=== PATIENT | male | born 1965 | race Caucasian/White ===

== ENCOUNTER → 2020-06-20 | Outpatient (CLI) | payer OTHER | END | disposition home or self-care (01) | LOC: LABWHC1 12:47 | PROVIDERS: ATTEND Orthopaedic Surgery | DX: Z01.812 Encounter for preprocedural laboratory examination (principal) | CPT/HCPCS: 87070 ==

== ENCOUNTER → 2020-07-11 | Outpatient (CLI) | payer OTHER ==
--- NOTE | 2020-07-13 23:21 | MR ---
EXAMINATION TYPE: MR giftyine/laron wo con DATE OF EXAM: 07/11/2020 COMPARISON: None HISTORY: Neck and lower back pain, headaches, RLE pain CONTRAST: Performed utilizing 0 mL intravenous Gadavist gadolinium contrast. TECHNIQUE: Multiplanar multiecho imaging on a 3.0 Cynthia magnet is performed through the cervical spin e. FINDINGS: The craniovertebral junction is normal. Vertebral body alignment is normal. C7-T1: No focal disc herniation or significant disc bulge is evident. No spinal canal stenosis or n eural foraminal stenosis is present. C6-7: No focal disc herniation or significant disc bulge is evident. No spinal canal stenosis or felix ral foraminal stenosis is present. C5-6: There is a broad-based disc bulge present with anterior thecal sac flattening. This may have so me cord contact. Cord deformity is not identified. Spinal canal narrowing is present. There is uncove rtebral joint hypertrophy. Moderate bilateral foraminal narrowing. C4-5: There is mild left paracentral disc bulge with mild anterior thecal sac flattening. No cord con tact or spinal canal stenosis present. Neural foramen are patent.. C3-4: There is central disc bulging. Mild anterior thecal sac compression is evident. No spinal canal stenosis or neural foraminal stenosis is present. C2-3: No focal disc herniation or significant disc bulge is evident. No spinal canal stenosis or felix ral foraminal stenosis is present. IMPRESSIONS: 1. Mild central disc bulging C3-4 with anterior thecal sac compression. 2. Mild left paracentral disc bulging with mild anterior thecal sac compression C4-5. 3. C5-6 Broad-based disc bulging with moderate anterior thecal sac compression may have cord contact and some spur mild spinal canal narrowing. 4. Mild bilateral foraminal narrowing from uncovertebral joint is present at the C5-6 level EXAMINATION TYPE: MR matilde/laron wo con DATE OF EXAM: 07/11/2020 COMPARISON: None HISTORY: Neck and lower back pain, headaches, RLE pain CONTRAST: 0 mL intravenous Gadavist. TECHNIQUE: Multiplanar, multisequence images of the lumbar spine were acquired. FINDINGS: L5-S1: No spinal canal stenosis or neural foraminal stenosis present. Facet hypertrophy is present. N o focal disc herniation or significant disc bulge is evident L4-L5: No significant disc bulge or disc herniation. No spinal canal stenosis. No foraminal stenosi s. Mild facet hypertrophy is present greater on the right. L3-L4: No significant disc bulge or disc herniation. No spinal canal stenosis. No foraminal stenosi s. Mild left facet hypertrophy is present.. L2-L3: No significant disc bulge or disc herniation. No spinal canal stenosis. No foraminal stenosi s. . L1-L2: No significant disc bulge or disc herniation. No spinal canal stenosis. No foraminal stenosi s. . T12-L1: No significant disc bulge or disc herniation. No spinal canal stenosis. No foraminal stenos is. . IMPRESSION: 1. Facet hypertrophy without foraminal stenosis or spinal canal stenosis. 2. No significant disc bulges.
== END | disposition home or self-care (01) ==
LOC: RADMRIMAIN 14:34
PROVIDERS: ATTEND Orthopaedic Surgery
DX: M99.71 Connective tissue and disc stenosis of intervertebral foramina of cervical region (principal); M48.02 Spinal stenosis, cervical region; M50.21 Other cervical disc displacement, high cervical region
CPT/HCPCS: 72141; 72148

== ENCOUNTER 2020-07-29 07:45 | Inpatient (IN) | payer OTHER ==
[2020-08-15 09:12] VITALS: BMI 32.3
--- NOTE | 2020-08-18 10:04 | HP ---
HISTORY AND PHYSICAL CHIEF COMPLAINT: Left shoulder pain. HISTORY OF PRESENT ILLNESS: The patient is a 54-year-old, right-hand dominant, unemployed male who presents with progressive left shoulder pain for the past several years, worsening over the past 8 months. He notes grinding and soreness along with stiffness. He is having night symptoms. He has previously had injections and therapy without much relief. Now he takes Toney as needed. He had a previous open surgery 30 years ago for recurrent dislocations. PAST MEDICAL HISTORY: Significant for arthritis, anxiety, hypercholesterolemia, hypertension, and chronic low back pain. PAST SURGICAL HISTORY: Significant for previous left open shoulder surgery. CURRENT MEDICATIONS: Current medications include Toney. ALLERGIES: He denies drug allergies. FAMILY HISTORY: Significant for cancer. SOCIAL HISTORY: Significant for 1 pack per day tobacco use. REVIEW OF SYSTEMS: Sixteen-point review of systems otherwise reviewed and is noncontributory. PHYSICAL EXAMINATION: On examination, the patient is approximately 5 feet 10 inches, 215 pounds of endomorphic habitus. HEENT exam is nonfocal. Neck is supple. On examination of his left shoulder, he has a healed deltopectoral incision. He is tender about the anterior glenohumeral joint and subacromial space. He has moderate crepitus. Active range of motion forward elevation 60 degrees, external rotation with the arm at side 20 degrees, internal rotation to the buttock. Passively I am able to forward elevate him to 70 degrees. Impingement test, Neer test, and Speed test are positive. His distal neurovascular exam appears intact in the left upper extremity. X-rays of the left shoulder obtained in the office show severe glenohumeral joint space narrowing in addition to previous anterior glenoid screw. The humeral head to acromial distance appears to be maintained. IMPRESSION: 1. Left severe glenohumeral joint osteoarthrosis. 2. History of open left shoulder stabilization surgery. RECOMMENDATIONS: I talked to the patient at length regarding his condition and treatment options. At this point he is quite limited and symptomatic secondary to pain related to his osteoarthrosis despite previous treatment with injections, medications, and therapy. After thorough discussion, he opts to proceed with surgery. We will plan to proceed with left total shoulder arthroplasty in addition to hardware removal. Risks and benefits were discussed at length in layman's terms. MMODL / IJN: [id number] /
[2020-08-18] MEDS ORDERED: ONDANSETRON 4 MG/2 ML VIAL IVP ONE (19:06)
[2020-08-18] MEDS ORDERED: DEXAMETHASONE SOD PHOSPHATE 4 MG/ML 1 ML VIAL IV ONE (19:06)
[2020-08-19] MEDS ORDERED: MELOXICAM 7.5 MG TAB PO PRN (05:00)
[2020-08-19] MEDS ORDERED: ACETAMINOPHEN TAB 500 MG TAB PO PRN (05:00)
[2020-08-19] MEDS ORDERED: TRANEXAMIC ACID 1,000 MG in SODIUM CHLORIDE 0.9% 100 ML IVPB PRN ×4 (05:00)
[2020-08-19] MEDS ORDERED: HYDROmorphone 0.5 MG/0.5 ML SYRINGE IVP PRN (07:00)
[2020-08-19] MEDS: LACTATED RINGERS 1,000 ML IV SCH ×2 (07:21→20:00)
[2020-08-19] MEDS ORDERED: TRANEXAMIC ACID 1,000 MG/10 ML VIAL ONE (07:42)
[2020-08-19] MEDS ORDERED: ROCURONIUM 10 MG/ML (5 ML VIAL) IV ONE (07:42)
[2020-08-19] MEDS ORDERED: ROPIVACAINE 5 MG/ML 30 ML VIAL ONE (07:42)
[2020-08-19] MEDS ORDERED: NEOSTIGMINE 1 MG/ML 10 ML VIAL ONE (07:42)
[2020-08-19] MEDS ORDERED: fentaNYL (PF) 50 MCG/ML 2 ML AMP ONE (07:42)
[2020-08-19] MEDS ORDERED: SODIUM CHLORIDE 0.9% 100 ML BAG ONE (07:42)
[2020-08-19] MEDS ORDERED: KETAMINE 10 MG/ML 20 ML VIAL ONE (07:42)
[2020-08-19] MEDS ORDERED: LIDOCAINE 1% INJ 10MG/ML (20 ML MDV) ONE (07:42)
[2020-08-19] MEDS ORDERED: WATER FOR INJECTION, STERILE 10 ML VIAL IV ONE (07:42)
[2020-08-19] MEDS ORDERED: HYDROmorphone (PF) 1 MG/ML ONE (07:42)
[2020-08-19] MEDS ORDERED: GLYCOPYRROLATE 0.2 MG/ML 2 ML VIAL ONE (07:42)
[2020-08-19] MEDS ORDERED: PROPOFOL 10 MG/ML 20 ML VIAL IV ONE (07:42)
[2020-08-19] MEDS ORDERED: ePHEDrine SULFATE/0.9% NACL/PF 50 MG/5 ML SYRINGE IV ONE (07:42)
[2020-08-19] MEDS ORDERED: MIDAZOLAM 2 MG/2 ML VIAL ONE (07:42)
[2020-08-19] MEDS ORDERED: SUCCINYLCHOLINE CHLORIDE 100 MG/5 ML SYR IV ONE (07:42)
[2020-08-19] MEDS ORDERED: ceFAZolin 3,000 MG in SODIUM CHLORIDE 0.9% IRRIGATIO 3,000 ML IRRIGATION ONE (08:27)
[2020-08-19] MEDS ORDERED: LACTATED RINGERS 1,000 ML IV ONE (09:44)
[2020-08-19] MEDS ORDERED: ONDANSETRON 4 MG/2 ML VIAL IVP PRN (09:52)
[2020-08-19] MEDS ORDERED: SENNOSIDES-DOCUSATE SODIUM 1 EACH TAB PO PRN (09:52)
[2020-08-19] MEDS ORDERED: HYDROcodone/APAP 7.5-325MG 1 EACH TAB PO PRN (09:54)
--- NOTE | 2020-08-19 10:23 | P.OP ---
Date of Procedure: 08/19/20 Preoperative Diagnosis: Severe left glenohumeral joint osteoarthrosis Postoperative Diagnosis: Same in addition to irritating hardware Procedure(s) Performed: Left total shoulder arthroplasty/removal retained hardware left glenoid Implants: Depuy global is 12 press-fit humeral stem was size 12 body, 52 x 21 mm eccentric humeral head, 48 mm cemented central peg glenoid component. Anesthesia: SERGIOA Surgeon: Per Guido Highway Maintainer #1: Veto Almanza Estimated Blood Loss (ml): 150 Pathology: other (I'll head) Condition: stable Disposition: PACU Indications for Procedure: Patient is a 55-year-old male who presents with progressive left shoulder pain secondary to osteoarthrosis despite conservative measures. He had an anterior glenoid procedure for stability more than 20 years ago. He discussion of the risks and benefits of operative intervention versus continued conservative measures was made with patient. He opted to proceed with surgery. Operative risks to include infection, neurovascular injury, development of blood clots, possible fracture, possible component loosening/instability need for subsequent procedures was discussed. He also understood at his younger age he is at higher risk for complication need for subsequent procedures. Informed consent was obtained. Operative Findings: As below Description of Procedure: The patient was brought to the operating room, and after induction of general anesthesia was placed in the beachchair position. The bony prominences were appropriately padded. The right upper extremity was prepped and draped in normal fashion. A deltopectoral incision was then made lateral to the coracoid process extending approximately 12 cm over the previous scar. The skin was incised sharply. Subcutaneous tissues were divided bluntly. Electrocautery was used for hemostasis. The deltopectoral interval was identified and the cephalic vein gently retracted laterally with the deltoid. Subdeltoid adhesions were bluntly dissected. A self-retaining retractor was placed. The clavipectoral fascia was opened and the conjoined tendon gently retracted medially. The upper one third of the pectoralis major was released to help facilitate exposure. The biceps was identified and the sheath was opened. The rotator interval was opened. The biceps was tenotomized and allowed to retract distally. The lesser tuberosity osteotomy was performed with a small sagittal saw. This completed with an osteotome. The humeral head was then exposed releasing the capsule off the humeral neck. The shoulder was gently dislocated. A starting hole was made in the head in line with the humeral shaft. The shaft was reamed by hand up to 12 mm. There is good distal chatter. The cutting guide was placed planning on a cut flush with the rotator cuff insertion and 30 of retroversion. The cutting block was pinned in place. The humeral head cut was then made. This measured most appropriately at 12 mm. Residual inferior osteophytes were carefully removed flush with the cahto cortical bone. A posterior glenoid retractor was placed. The glenoid was then exposed releasing the labrum from the 6-12 o'clock position. Residual labral tissue was removed. The anterior superior screw/washer was then removed. The glenoid sized most appropriate 48 mm. A guidewire was then inserted planning on the appropriate version. The glenoid was reamed down to a bleeding bony surface. The central pedicle was drilled. The alignment guide was placed in the peripheral peg holes drilled. The trial size 48 mm glenoid was placed and was fully seated. There was good anterior to posterior and inferior to superior fit. The trial component was removed. Pulsatile lavage was utilized. The bony surface was dried. The perip heral peg holes were then pressurized with cement utilizing a syringe. Excess cement was removed. A central peg glenoid was then placed and was fully seated. This was gently impacted. This was held in place until the cement had sufficiently hardened. Attention was then paid again towards preparing the proximal humerus. The appropriate broach was placed in 30 of retroversion and was fully seated. An eccentric 52 x 21 mm humeral head was placed. The shoulder was gently reduced. It was taken through a range of motion. It was felt to be stable in flexion and extension with internal and external rotation. I felt there was adequate scientologist of soft tissue tension. The shoulder was gently dislocated. The trial components were then removed. A #2 Ethibond was placed laterally for reattachment of the lesser tuberosity. The humeral stem was inserted in 30 of retroversion and was fully seated. There was good rotational stability. The eccentric 52 x 21 mm humeral head was gently impacted. The shoulder was then gently reduced and taken through range of motion and was felt to be stable. Pulsatile lavage was utilized. Lesser tuberosity was reattached utilizing #2 Ethibond suture. The rotator interval was closed with #2 Ethibond suture. She had minimal drainage at this point therefore a deep drain was not placed. The deltopectoral interval was closed with interrupted 2-0 Vicryl sutures. The subcu tissues were reapproximated with interrupted 2-0 Vicryl sutures. The skin was reprepped with 3-0 subcuticular Prolene suture. Steri-Strips were applied. A sterile dressing was applied in addition to a sling. The patient was then awoken from general anesthesia and transferred to recovery room in good condition. Blood loss was estimated at 150 mL. No complications were incurred. Sponge and needle counts were correct at the end the case. Piyush ISAACS during the major components the case to include exposure, resection, implantation, and closure.
--- NOTE | 2020-08-19 12:41 | XR ---
EXAMINATION TYPE: XR shoulder limited LT DATE OF EXAM: 08/19/2020 CLINICAL HISTORY: Left total shoulder replacement TECHNIQUE: Three views of the left shoulder are obtained. COMPARISON: None. FINDINGS: Single view left shoulder radiograph. There Has been a total left shoulder arthroplasty. No evidence of fracture or loosening of the left humeral prosthesis. Single radiopaque clip overlying t he glenoid. IMPRESSION: 1. Total left shoulder arthroplasty without evidence of fracture or loosening on this single view.
--- NOTE | 2020-08-19 13:22 | P.ANPRN ---
Procedure Note - Anesthesia - Nerve Block Performed Left Interscalene Time Out Performed: Yes (:) Date of Procedure: 08/19/20 Procedure Start Time: Procedure Stop Time: : Location of Patient: Phase I Indication: Acute Post-Operative Pain, Requested by Surgeon (Dr Guido) Sedation Type: Sedate with meaningful contact maintained Preparation: Sterile Prep Position: Supine Catheter: None Needle Types: Pajunk Needle Gauge: Other (see comment) (22g) Ultrasound used to visualize needle placement: Yes Ultrasound used to observe medication spread: Yes Injectate: 0.5% Ropivacaine (see comment for volume) (20cc) Blood Aspirated: No Pain Paresthesia on Injection Noted: No Resistance on Injection: Normal Image Stored and Saved: Yes Events: Uneventful and Well Tolerated
[2020-08-19] MEDS ORDERED: CYCLOBENZAPRINE 10 MG TAB PO PRN (15:14)
[2020-08-19] MEDS ORDERED: ALPRAZolam 0.5 MG TAB PO PRN (15:14)
[2020-08-19] MEDS: NICOTINE 21MG/24HR PATCH TRANSDERM SCH (15:30)
--- NOTE | 2020-08-19 17:05 | P.CONS ---
History of Present Illness - Reason for Consult Hypertension - History of Present Illness Patient is a pleasant 55-year-old male admitted for elective left shoulder arthroplasty for severe left glenohumeral joint osteoarthritis. Patient had left total shoulder arthroplasty. Patient pain is well controlled at this time did not pass gas yet that did not move his bowels yet. Patient does have history of hypertension. Patient blood pressure is fairly stable at this time patient is on multiple antihypertensive medications. Patient denied any fever chills patient doesn't have any dysuria patient fully catheter was removed. Review of Systems REVIEW OF SYSTEMS: CONSTITUTIONAL: No fever, no malaise, no fatigue. HEENT: No recent visual problems or hearing problems. Denied any sore throat. CARDIOVASCULAR: No chest pain, orthopnea, PND, no palpitations, no syncope. PULMONARY: No shortness of breath, no cough, no hemoptysis. GASTROINTESTINAL: No diarrhea, no nausea, no vomiting, no abdominal pain. NEUROLOGICAL: No headaches, no weakness, no numbness. HEMATOLOGICAL: Denies any bleeding or petechiae. GENITOURINARY: Denies any burning micturition, frequency, or urgency. MUSCULOSKELETAL/RHEUMATOLOGICAL: As mentioned in HPI ENDOCRINE: Denies any polyuria or polydipsia. The rest of the 14-point review of systems is negative. Past Medical History Past Medical History: Eye Disorder, Hyperlipidemia, Hypertension Additional Past Medical History / Comment(s): MACULAR DEGENERATION History of Any Multi-Drug Resistant Organisms: None Reported Past Surgical History: Orthopedic Surgery Additional Past Surgical History / Comment(s): LT SHOULDER SX. ORIF RT ANKLE Past Anesthesia/Blood Transfusion Reactions: No Reported Reaction Smoking Status: Current every day smoker - Past Family History Mother Family Medical History: Cancer Medications and Allergies Home Medications Medication Instructions Recorded Confirmed Type ALPRAZolam [Xanax] 0.5 mg PO TID PRN 08/15/20 08/15/20 History Atorvastatin [Lipitor] 20 mg PO HS 08/15/20 08/15/20 History Cyclobenzaprine [Flexeril] 10 mg PO TID PRN 08/15/20 08/15/20 History Escitalopram [Lexapro] 20 mg PO DAILY 08/15/20 08/15/20 History HYDROcodone/APAP 7.5-325MG [[place] 1 tab PO Q6HR PRN 08/15/20 08/15/20 History 7.5-325] Losartan Potassium 100 mg PO DAILY 08/15/20 08/15/20 History hydroCHLOROthiazide [Hydrodiuril] 25 mg PO BID 08/15/20 08/15/20 History Allergies Allergy/AdvReac Type Severity Reaction Status Date / Time No Known Allergies Allergy Verified 08/19/20 07:03 Physical Exam Vitals: Vital Signs Temp Pulse Pulse Resp BP BP Pulse Ox 08/19/20 13:35 97.9 F 83 20 130/81 93 L 08/19/20 13:00 88 14 122/70 99 08/19/20 12:30 78 16 114/68 97 08/19/20 12:00 88 14 113/73 93 L 08/19/20 11:45 94 16 131/71 95 08/19/20 11:30 88 16 137/71 96 08/19/20 11:15 75 14 137/75 96 08/19/20 11:00 79 14 163/79 96 08/19/20 10:45 90 14 166/76 90 L 08/19/20 10:30 100 14 99 08/19/20 10:17 97.1 F L 65 18 187/96 95 08/19/20 07:13 97.1 F L 52 L 18 144/73 97 Intake and Output 08/19/20 08/19/20 08/19/20 06:59 14:59 22:59 Intake Total 1151 Output Total 150 Balance 1001 Intake: IV 1151 Output: Estimated Blood Loss 150 Other: Weight 98 kg PHYSICAL EXAMINATION: GENERAL: The patient is alert and oriented x3, not in any acute distress. Well developed, well nourished. HEENT: Pupils are round and equally reacting to light. EOMI. No scleral icterus. No conjunctival pallor. Normocephalic, atraumatic. No pharyngeal erythema. No thyromegaly. CARDIOVASCULAR: S1 and S2 present. No murmurs, rubs, or gallops. PULMONARY: Chest is clear to auscultation, no wheezing or crackles. ABDOMEN: Soft, nontender, nondistended, normoactive bowel sounds. No palpable organomegaly. MUSCULOSKELETAL: Her to orthopedic surgery and postsurgical packing off left shoulder EXTREMITIES: No cyanosis, clubbing, or pedal edema. NEUROLOGICAL: Gross neurological examination did not reveal any focal deficits. SKIN: No rashes. Assessment and Plan Plan: -Hypertension: Patient is expected to have perioperative hypotension because of which I'll hold off on hydrochlorothiazide and cut down the losartan. -Hyperlipidemia continue with Lipitor -Depression: Patient is on Lexapro which will be continued -Chronic back pain -Nicotine abuse: Counseling was provided ordered a nicotine patch -Left shoulder osteoarthritis primarily: Patient is status post surgery and pain management as per primary service pain is well controlled at this time.
[2020-08-19 20:52] VITALS: RESP 16
[2020-08-19] MEDS ORDERED: ATORVASTATIN 20 MG TAB PO SCH (21:00)
[2020-08-19] MEDS: HYDROcodone/APAP 7.5-325MG 1 EACH TAB PO PRN (22:22)
[2020-08-20] MEDS: HYDROmorphone 0.5 MG/0.5 ML SYRINGE IVP PRN ×2 (03:59→09:01)
[2020-08-20] MEDS: HYDROcodone/APAP 7.5-325MG 1 EACH TAB PO PRN (05:04)
[2020-08-20 05:32] VITALS: BP 101/63; PULSE 59; TEMP 97.8
[2020-08-20 07:55] LABS: Basophils % (A) 0 %; Eosinophils # (A) 0.1 k/uL (0-0.7); Eosinophils % (A) 1 %; HCT 37.3 % (39.0-53.0); Lymphocytes # (A) 2.3 k/uL (1.0-4.8); Lymphocytes % (A) 17 %; MCHC 34.8 g/dL (31.0-37.0); Mean Platelet Volume 8.4; Monocytes # (A) 1.2 k/uL (0-1.0); Monocytes % (A) 9 %; Neutrophils # (A) 9.2 k/uL (1.3-7.7); Neutrophils % (A) 70 %; Platelet Count 188 k/uL (150-450); RBC 4.06 m/uL (4.30-5.90); RDW 12.4 % (11.5-15.5)
[2020-08-20] MEDS ORDERED: LOSARTAN 50 MG TAB PO SCH (09:00)
[2020-08-20] MEDS ORDERED: ASPIRIN 325 MG TAB PO SCH (09:00)
[2020-08-20] MEDS ORDERED: ESCITALOPRAM 20 MG TAB PO SCH (09:00)
[2020-08-20] MEDS: NICOTINE 21MG/24HR PATCH TRANSDERM SCH (09:03)
--- NOTE | 2020-08-20 10:04 | P.PN ---
Subjective Progress Note Date: 08/20/20 Principal diagnosis: Status post left total shoulder arthroplasty Patient was examined today bedside, he is resting comfortably. Patient is utilizing the arm sling. Postoperative bandages removed by myself today at bedside. He is having some pain in the shoulder with movement. He has no other orthopedic complaints. He denies any headaches, lightheadedness, chest pain or shortness of breath. Objective - Vital Signs Vital signs: Vital Signs Temp 97.8 F 08/20/20 05:00 Pulse 59 L 08/20/20 05:00 Resp 16 08/20/20 05:00 BP 101/63 08/20/20 05:00 Pulse Ox 94 L 08/20/20 05:00 Intake & Output 08/19/20 08/20/20 08/20/20 18:59 06:59 18:59 Intake Total 1281 1300 Output Total 150 600 Balance 1131 700 Weight 98 kg Intake: IV 1151 Intake, IV Titration 130 340 Amount Lactated Ringers 1,000 ml 80 240 @ 20 mls/hr IV .Q24H [facility] Rx#:[id number] ceFAZolin 2 gm In Sodium 50 100 Chloride 0.9% 50 ml @ 100 mls/hr IVPB Q8HR [facility] Rx# :[id number] Oral 960 Output: Urine 600 Estimated Blood Loss 150 Other: # Voids 2 - Exam Left upper extremity: Incision is clean, dry and intact. The suture and Steri-Strips are in good position. There is some ecchymosis noted along the medial and lateral borders of the upper arm trending down or near the elbow. Extension and flexion are intact at the elbow and hand and wrist. Shoulder range of motion was not assessed. Sensory exam to light touch is intact throughout that left upper extremity, his radial and ulnar pulses are 2+ - Labs CBC & Chem 7: 08/20/20 06:58 Labs: Abnormal Lab Results - Last 24 Hours (Table) 08/20/20 Range/Units 06:58 WBC 13.0 H (3.8-10.6) k/uL RBC 4.06 L (4.30-5.90) m/uL Hct 37.3 L (39.0-53.0) % Neutrophils # 9.2 H (1.3-7.7) k/uL Monocytes # 1.2 H (0-1.0) k/uL Assessment and Plan Assessment: Postop day #1 status post left total shoulder arthroplasty Plan: Pain control, patient does take Claunch for his chronic back pain. We'll prescribe Percocet 5 mg/325 mg the next 1-2 weeks DVT prophylaxis, aspirin 81 mg twice a day for 2 weeks Wound care instructions were discussed Activity level instructions were discussed, this including use of arm sling Showering instructions were discussed Medical recommendations Plan for discharge home today Time with Patient: Less than 30
--- NOTE | 2020-08-20 10:09 | P.DS ---
Providers Date of admission: 08/19/20 06:03 Expected date of discharge: 08/20/20 Attending physician: Per Guido Consults: 08/19/20 09:52 Consult Physician Routine Consulting Provider: Annita Crowe Consult Reason/Comments: medical management Do you want consulting provider notified?: Yes Primary care physician: [facility] Course: Date of admission: 08/19/2020 Date of discharge: 08/20/2020 Admission diagnosis: Status post left total shoulder arthroplasty Discharge diagnosis: Same Attending physician: Dr. Guido Surgical procedures: Left total shoulder arthroplasty Brief history: Patient is a 55-year-old male with a history of progressive primary left shoulder osteoarthritis. At this point patient has failed conservative treatment measures and has opted to proceed with a elective left total shoulder arthroplasty. Hospital course: Details of patient's surgery can be found in operative report. Patient tolerated the procedure well and was subsequently transported to orthopedic floor. Patient's orthopeidc and medical care was provided daily. Patient had daily laboratory tests performed for evaluation of overall blood counts. Patient had daily physical therapy to include strengthening range of motion as well as education with walker ambulation. Patient was treated with aspirin for their postoperative DVT prophylaxis during their inpatient stay. Patient was noted to have a relatively uneventful postoperative course. Patient reported satisfactory pain control with oral pain medications by postoperative day 0. Patient showed satisfactory progress with physical therapy. Patient moved steadily through the program and had no difficulty meeting the goals by postoperative day 1. Given patient's otherwise satisfactory course and having met physical therapy goals, plan is to discharge patient home on postoperative day 1. Discharge condition/disposition: Patient will be discharged home in stable condition. Discharge medications: Instructions are given on resumption of patient's normal daily medications per primary care recommendation, in addition patient will be prescribed Percocet 5 mg/325 mg. Discharge instructions: 1. Wound care and infection precautions, keep incision dry and covered while showering, no lotions, creams, moisturizers. No soaking, tubs, pools, hottubs. Do not scrub over the incision. 2. Utilize arm sling at all times 3. Ice shoulder often 4. Utilize compression sleeve until seen at first follow up appointment.. 7. Pain meds and anticoagulants per prescription. 8. Pain medication has potential to cause constipation. Increase oral fluid and fiber intake. Contact primary care provider if you have not had a bowel movement within 48 hours after discharge 9. No anti-inflammatory medication until discussed at first post operative visit, this including Motrin, Aleve, Mobic, Diclofenac 10. Follow up in office at 2 weeks postop with Brendon Negron/Dylan Cruz PA-C 11. Follow up with your primary care doctor 7-10 days after discharge. 12. Contact [facility] with any questions, . Procedures: Left total shoulder arthroplasty Patient Condition at Discharge: Good Plan - Discharge Summary Discharge Rx Participant: Yes New Discharge Prescriptions: New oxyCODONE HCL/ACETAMINOPHEN [Percocet 5-325 mg] 1 - 2 tab PO Q6HR PRN #42 tab PRN Reason: Pain Aspirin [Adult Low Dose Aspirin EC] 81 mg PO BID #60 tablet. No Action ALPRAZolam [Xanax] 0.5 mg PO TID PRN PRN Reason: Anxiety Cyclobenzaprine [Flexeril] 10 mg PO TID PRN PRN Reason: MUSCLE SPASMS Losartan Potassium 100 mg PO DAILY Escitalopram [Lexapro] 20 mg PO DAILY hydroCHLOROthiazide [Hydrodiuril] 25 mg PO BID HYDROcodone/APAP 7.5-325MG [[place] 7.5-325] 1 tab PO Q6HR PRN PRN Reason: Pain Atorvastatin [Lipitor] 20 mg PO HS Discharge Medication List ALPRAZolam [Xanax] 0.5 mg PO TID PRN 08/15/20 [History] Atorvastatin [Lipitor] 20 mg PO HS 08/15/20 [History] Cyclobenzaprine [Flexeril] 10 mg PO TID PRN 08/15/20 [History] Escitalopram [Lexapro] 20 mg PO DAILY 08/15/20 [History] HYDROcodone/APAP 7.5-325MG [[place] 7.5-325] 1 tab PO Q6HR PRN 08/15/20 [History] Losartan Potassium 100 mg PO DAILY 08/15/20 [History] hydroCHLOROthiazide [Hydrodiuril] 25 mg PO BID 08/15/20 [History] Aspirin [Adult Low Dose Aspirin EC] 81 mg PO BID #60 tablet. 08/20/20 [Rx] oxyCODONE HCL/ACETAMINOPHEN [Percocet 5-325 mg] 1 - 2 tab PO Q6HR PRN #42 tab 08/20/20 [Rx] Follow up Appointment(s)/Referral(s): Veto Almanza PAC [PHYSICIAN CAUSTIC ROOM ATTENDANT] - 2 Weeks Activity/Diet/Wound Care/Special Instructions: Orthopedic discharge instructions: 1. Utilize pain medication as needed 2. Aspirin 81 mg twice a day for DVT prophylaxis 3. Keep incision covered and dry while showering 4. Utilize the arm sling 5. Basic elbow and hand and wrist range of motion exercises daily 6. Ice the shoulder often for symptomatic relief 7. Plan for follow-up at [facility] in 2 weeks, please contact office with any questions Discharge Disposition: HOME SELF-CARE
--- NOTE | 2020-08-20 12:45 | P.PN ---
Subjective Progress Note Date: 08/20/20 - Reason for Consult Hypertension - History of Present Illness Patient is a pleasant 55-year-old male admitted for elective left shoulder arthroplasty for severe left glenohumeral joint osteoarthritis. Patient had left total shoulder arthroplasty. Patient pain is well controlled at this time did not pass gas yet that did not move his bowels yet. Patient does have history of hypertension. Patient blood pressure is fairly stable at this time patient is on multiple antihypertensive medications. Patient denied any fever chills patient doesn't have any dysuria patient fully catheter was removed. 08/20/2020 Patient is seen in follow-up with no acute overnight issues status post left shoulder arthroplasty and is being closely monitored. Patient does take hypertension medications and was instructed to monitor blood pressure closely in the outpatient setting and okay to resume medications. Patient normally takes losartan 100 mg daily although instructed the patient to take half and monitor blood pressure closely and keep a diary for primary care follow-up. Also recommend following up with primary care provider Dr. Jovani Nava upon disc harge. Review of systems: Constitutional: No reports of fatigue, fever, or chills Cardiovascular: No reports of chest pain or palpitations Respiratory: No reports of shortness of breath or cough GI: No reports of nausea, vomiting, or diarrhea : No reports of dysuria or retention Neurovascular: No reports of weakness or numbness All medications have been reviewed Objective - Vital Signs Vital signs: Vital Signs Temp 97.8 F 08/20/20 05:00 Pulse 59 L 08/20/20 05:00 Resp 16 08/20/20 05:00 BP 101/63 08/20/20 05:00 Pulse Ox 94 L 08/20/20 05:00 Intake & Output 08/19/20 08/20/20 08/20/20 18:59 06:59 18:59 Intake Total 1281 1300 Output Total 150 600 Balance 1131 700 Weight 98 kg Intake: IV 1151 Intake, IV Titration 130 340 Amount Lactated Ringers 1,000 ml 80 240 @ 20 mls/hr IV .Q24H [facility] Rx#:[id number] ceFAZolin 2 gm In Sodium 50 100 Chloride 0.9% 50 ml @ 100 mls/hr IVPB Q8HR [facility] Rx# :[id number] Oral 960 Output: Urine 600 Estimated Blood Loss 150 Other: # Voids 2 - Exam GENERAL: The patient is alert and oriented x3, not in any acute distress. Well developed, well nourished. HEENT: Pupils are round and equally reacting to light. EOMI. No scleral icterus. No conjunctival pallor. Normocephalic, atraumatic. No pharyngeal erythema. No th yromegaly. CARDIOVASCULAR: S1 and S2 present. No murmurs, rubs, or gallops. PULMONARY: Chest is clear to auscultation, no wheezing or crackles. ABDOMEN: Soft, nontender, nondistended, normoactive bowel sounds. No palpable organomegaly. MUSCULOSKELETAL: Refer to orthopedic surgery and postsurgical packing of left shoulder EXTREMITIES: No cyanosis, clubbing, or pedal edema. NEUROLOGICAL: Gross neurological examination did not reveal any focal deficits. SKIN: No rashes. - Labs CBC & Chem 7: 08/20/20 06:58 Labs: Abnormal Lab Results - Last 24 Hours (Table) 08/20/20 Range/Units 06:58 WBC 13.0 H (3.8-10.6) k/uL RBC 4.06 L (4.30-5.90) m/uL Hct 37.3 L (39.0-53.0) % Neutrophils # 9.2 H (1.3-7.7) k/uL Monocytes # 1.2 H (0-1.0) k/uL Assessment and Plan Assessment: -Hypertension: Patient is expected to have perioperative hypotension because of which I'll hold off on hydrochlorothiazide and cut down the losartan. -Hyperlipidemia continue with Lipitor -Depression: Patient is on Lexapro which will be continued -Chronic back pain -Nicotine abuse: Counseling was provided ordered a nicotine patch -Left shoulder osteoarthritis primarily: Patient is status post surgery and pain management as per primary service pain is well controlled at this time. Plan: Continue with current medications and pain management per primary service. Instructed the patient to monitor blood pressure and monitor for signs of hypotension and hold medications if systolic blood pressure is 100 or less. Patient normally takes losartan 100 mg daily and instructed the patient to take half unless blood pressure continues to rise and follow-up with primary care pro vider upon discharge. Blood pressure on the lower side status post surgery which is an expected outcome. Patient verbalized understanding. Patient is scheduled to be discharged today. Will continue to monitor during hospitalization. Educated and counseled on avoiding tobacco. Thank you for thi s consultation.
[2020-08-23] MEDS ORDERED: diphenhydrAMINE 25 MG CAP PO PRN (07:58)
== END 2020-08-20 11:50 | disposition home or self-care (01) | DRG 483 ==
LOC: 2ORMAIN 08-19 06:03 → 5NMEDONC 08-19 12:37
PROVIDERS: ADMIT Orthopaedic Surgery; ATTEND Orthopaedic Surgery
PROC: 0RRK0JZ Replacement of Left Shoulder Joint with Synthetic Substitute, Open Approach (ICD-10-PCS; principal; 2020-08-19 07:45)
DX: M19.012 Primary osteoarthritis, left shoulder (principal); H35.30 Unspecified macular degeneration; M54.9 Dorsalgia, unspecified; E78.00 Pure hypercholesterolemia, unspecified; E78.5 Hyperlipidemia, unspecified; F32.9 Major depressive disorder, single episode, unspecified; F17.210 Nicotine dependence, cigarettes, uncomplicated; G89.29 Other chronic pain; I10 Essential (primary) hypertension; Z79.899 Other long term (current) drug therapy; Z20.822 Contact with and (suspected) exposure to COVID-19; Z80.9 Family history of malignant neoplasm, unspecified; Z71.6 Tobacco abuse counseling
CPT/HCPCS: 64415; 76942; 85025; 87635; 88300

== ENCOUNTER → 2021-03-25 | Outpatient (CLI) | payer OTHER ==
[2021-03-25 14:38] VITALS: BP 142/82; PULSE 61; RESP 18; TEMP 97.9
--- NOTE | 2021-03-25 14:58 | P.PAINCN ---
History of Present Illness - Reason for Consult Consult date: 03/25/21 - History of Present Illness as this is 55 years old male with a chronic history of severe low back pain and neck, shouldn't had these symptoms for more than 10 years but he reported that the intensity of the pain increased over time and currently is of the pain in the low back area radiated to the right buttock, patient denies any motor or sensory deficit he feels some weakness in his right lower extremity but he is ambulating on his own, he denies any numbness or tingling sensation, denies any fever or night sweats, and currently on [place] 7.5/325 every 6 hours when necessary and Flexeril 10 mg 3 times a day, and he continued to have severe pain patient currently doing physical therapy, and he tried the [id number] pain medication Motrin without any significant benefit Past Medical History Past Medical History: Eye Disorder, GERD/Reflux, Hyperlipidemia, Hypertension, Osteoarthritis (OA), Prostate Disorder Additional Past Medical History / Comment(s): MACULAR DEGENERATION. "2 bulging discs." History of Any Multi-Drug Resistant Organisms: None Reported Past Surgical History: Orthopedic Surgery Additional Past Surgical History / Comment(s): LEFT SHOULDER SURGERY, ORIF RIGHT ANKLE. Past Anesthesia/Blood Transfusion Reactions: No Reported Reaction Past Psychological History: Anxiety Smoking Status: Current every day smoker Past Alcohol Use History: Occasional Additional Past Alcohol Use History / Comment(s): SMOKES < 1 PPD, HAD QUIT 15 YEARS PRIOR TO THAT. Past Drug Use History: Marijuana Additional Drug Use History / Comment(s): SMOKES MARIJUANA DAILY. - Past Family History Mother Family Medical History: Cancer Sister(s) Family Medical History: Cancer, Deep Vein Thrombosis (DVT) Medications and Allergies Home Medications Medication Instructions Recorded Confirmed Type ALPRAZolam [Xanax] 0.5 mg PO TID PRN 08/15/20 03/24/21 History Atorvastatin [Lipitor] 20 mg PO HS 08/15/20 03/24/21 History Cyclobenzaprine [Flexeril] 10 mg PO TID PRN 08/15/20 03/24/21 History Escitalopram [Lexapro] 20 mg PO DAILY 08/15/20 03/24/21 History HYDROcodone/APAP 7.5-325MG [[place] 1 tab PO Q6HR PRN 08/15/20 03/24/21 History 7.5-325] Losartan Potassium 100 mg PO DAILY 08/15/20 03/24/21 History Aspirin [Adult Low Dose Aspirin EC] 81 mg PO BID #60 tablet. 08/20/20 03/24/21 Rx Allergies Allergy/AdvReac Type Severity Reaction Status Date / Time acetaminophen [From Percocet] Allergy Rash/Hives Verified 03/24/21 11:22 oxycodone [From Percocet] Allergy Rash/Hives Verified 03/24/21 11:22 Physical Exam Vitals: Vital Signs Temp Pulse Resp BP Pulse Ox 03/25/21 14:29 97.9 F 61 18 142/82 95 Physical Examinations : -Constitutiona : Cooperative , not in acute distress . -HEENT : nech : supple , no Lymphadenopathy , normal thyroid size . : eyes : no ptosis , no icterus, no photophobia . - neurologic : Cranial nerve II to XII intact , no focal neurological deffecit . -psychatric : alert , oriented X 3 , appropriate affect , intact judgment and insight . -Lymphatic : no Lymphadenopathy . - musculoskeltal : Cervical Spine motor stregnth in the deltoid and biceps, normal right side , normal Left side motor stregnth biceps and the wrist extensors normal right side ,normal left side . motor stregnth in the triceps muscle . normal Right side , normal Left side deep tendon reflexes normal at the biceps , normal at Brachioradialis , normal at tricepes Lumber spine moter stegnth lower extremities ,thigh and legs 5/5 Right side , 5/5 Left side deep tendon reflexes : normal Knee Jerk , normal ankle Jerk lumber facet Loading Test =positive Right , positive Left Range of motion of the lumbar spine F lexion 30 degrees, extension 10 degrees strait leg raising test = positive at 60 degree on the right side Fabere test= positive Right , and positive LT . Sever tenderness over the Sacroiliac joint on the Right . Gaenslen test= positive right . Seated flexion test= positive right . Distraction test= positive right Sacroiliac compression test= positive right Results Comments: MRI of the lumbar spine L3 4 L4 5 and L5-S1 facet arthropathy MRI of the cervical spine C4 5 and C5 6 and there is spinal canal stenosis Assessment and Plan Plan: assessment and plan=1-right sacroiliitis. 2-lumbar spondylosis with lumbar facet arthropathy. Patient could benefit from right side sacroiliac joint steroid injection with fluoroscopy guidance Time with Patient: Greater than 30 PQRS Measure Charge Sheet Measure #130: Documentation of Current Meds in Medical Chart: Patient's medications documented in chart Measure #226: Tobacco Use: Screen & Cessation Intervention: Pt not a tobacco user Measure #111: Pneumonia Vaccination: Pneumococcal vaccine NOT administered or previously given Measure #47: Advance Care Plan: Advance care planning discussed & documented, pt chose/unable to give Measure #412: Opioid Treatment Agreement: No documentation of signed opioid treatment agreement Measure #408: Opioid Therapy Follow-up Evaluation: Patient had NO f/u eval minimum every 3 months during opioid therapy Measure #317: Preventitive Care & Scrn High Bld Press & F/U: Pre-hypertensive or hypertensive BP documented, pt will f/u with PCP Measure #128: Body Mass Index (BMI) Screening & Follow-up: BMI documented ABOVE normal parameters - f/u documented Measure #131: Pain Assessment & Follow-up: Pain positive & plan documented, Follow-up scheduled Measure #431: Unhealthy Alcohol Use Preventative Care & Scrn: Patient not identified as an unhealthy alcohol user Mode of Arrival: Ambulatory - Pain Location Lower Back Non-Pharmacological Interventions: Chiropractic Treatment, Heat, Physical Therapy, Relaxation Technique Pharmacological Interventions: Epidural, Medication, PRN Medication PQRS Narrative: Blood Pressure 142/82 Pain Intensity [Lower Back] 5 Scale Used Numeric (1 - 10) Hx Alcohol Use (MH) Yes: Occasional Home Medications: Ambulatory Orders ALPRAZolam [Xanax] 0.5 mg PO TID PRN 08/15/20 Atorvastatin [Lipitor] 20 mg PO HS 08/15/20 Cyclobenzaprine [Flexeril] 10 mg PO TID PRN 08/15/20 Escitalopram [Lexapro] 20 mg PO DAILY 08/15/20 HYDROcodone/APAP 7.5-325MG [[place] 7.5-325] 1 tab PO Q6HR PRN 08/15/20 Losartan Potassium 100 mg PO DAILY 08/15/20 Aspirin [Adult Low Dose Aspirin EC] 81 mg PO BID #60 tablet. 08/20/20
== END ==
LOC: PNWHC3 13:31
PROVIDERS: ATTEND Specialist
DX: M46.1 Sacroiliitis, not elsewhere classified (principal); M47.816 Spondylosis without myelopathy or radiculopathy, lumbar region; E78.5 Hyperlipidemia, unspecified; I10 Essential (primary) hypertension; M19.90 Unspecified osteoarthritis, unspecified site; F41.9 Anxiety disorder, unspecified; F17.210 Nicotine dependence, cigarettes, uncomplicated; Z88.6 Allergy status to analgesic agent; Z88.5 Allergy status to narcotic agent; Z79.899 Other long term (current) drug therapy
CPT/HCPCS: 99211

== ENCOUNTER 2021-05-26 09:37 | Day surgery (SDC) | payer OTHER ==
[2021-05-22 14:53] VITALS: BMI 32.3
[~2021-05-26 09:37] MED LIST: LACTATED RINGERS 1,000 ML IV SCH; LIDOCAINE 1% (10MG/ML) FOR IV START INTRADERMA PRN; ROPIVACAINE 5MG/ML 20ML VIAL ONE
[2021-05-26 10:10] VITALS: TEMP 97.7
[2021-05-26] MEDS ORDERED: fentaNYL (PF) 50 MCG/ML 2 ML AMP ONE (10:30)
[2021-05-26] MEDS ORDERED: methylPREDNISolone ACETATE 40 MG/ML 1 ML VIAL ONE (10:30)
[2021-05-26] MEDS ORDERED: MIDAZOLAM 2 MG/2 ML VIAL ONE (10:30)
--- NOTE | 2021-05-26 10:43 | P.PCN ---
Date of Procedure: 05/26/21 Procedure(s) Performed: Procedure= Right sacroiliac joints steroid injection under fluoroscopy guidance (fluoroscopy image stored on file in the radiology Department ) Preoperative diagnosis= 1-Right sacroiliitis 2-lumbar facet arthropathy Postoperative diagnosis=Same as preop Diagnosis . Complication = none Condition= stable Anesthesia= moderate sedation with intravenous Versed 2 mg , and fentanyl 100 micrograms . Indication for the procedure= patient complaining of low back pain , examination was positive for severe tenderness over the sacroiliac joints bilaterally and patient diagnosed with sacroiliitis, for this reason he was good candidate for sacroiliac joint steroid injection. Description of the procedure= procedure risk and benefits discussed with the patient, including but not limited, risk of infection and bleeding, and ALLERGIC reaction to the medication and not complete pain relief and patient agreed with the preceding patient taken to the operating room, placed in prone position or standard monitors applied to the patient then after induction of anesthesia back prepped with chlorhexidine 3 times , Then under strict sterile technique, first I did the right sacroiliac joint the which was identified under fluoroscopy guidance been local infiltration of the skin and subcu interstitial with lidocaine 1% then 22-gauge Quincke Needle advanced slowly under fluoroscopy and placed in the right sacroiliac joint needle placement confirmed with AP and oblique and lateral view and after appropriate needle placement confirmed and after negative aspiration, or heme , then Ropivacaine 0.5% 5 mL, and 80 mg of Depo-Medrol mixed together and injected in the right sacroiliac joint after negative aspiration patient tolerated the procedure well without any complication.
[2021-05-26] MEDS ORDERED: IV FLUID CONTINUATION 800 ML IV ONE (10:50)
[2021-05-26 11:00] VITALS: RESP 16
[2021-05-26 11:13] VITALS: BP 106/64; PULSE 58
--- NOTE | 2021-05-26 11:53 | FL ---
Fluoroscopy HISTORY: Pain 4 seconds fluoroscopy time supplied to the referring clinician. 1 intraoperative C-arm images docume nt the procedure. See dictated report from anesthesia.
== END 2021-05-26 11:33 | disposition home or self-care (01) ==
LOC: ORPAIN 09:37
PROVIDERS: ATTEND Specialist
DX: M46.1 Sacroiliitis, not elsewhere classified (principal); M47.816 Spondylosis without myelopathy or radiculopathy, lumbar region; Z79.82 Long term (current) use of aspirin
CPT/HCPCS: J2250; J1030; J3010; J2795; G0260; 27096

== ENCOUNTER → 2021-06-11 | Outpatient (CLI) | payer OTHER ==
[2021-06-11 14:20] VITALS: BP 152/90; PULSE 63; RESP 18
--- NOTE | 2021-06-11 14:26 | P.PN ---
Subjective Progress Note Date: 06/11/21 Principal diagnosis: A 55 yr old malewith a history of severe and chronic low back pain secondary to lumbar degenerative disc diseases and lumbar spondylosis with facet arthropathy presents today for evaluation of right SI joint injection. Patient states he experienced 80-90% pain relief up until today status post procedure. Pain level is currently at 1 out of 10 in intensity, dull, achy and exacerbated up to a 5/10 in intensity with bending, lifting or crouching. Pain is alleviated with medications, injections, repositioning, physical therapy for 8 weeks starting 03/24, daily home exercise regimen, and rest. Interventional pain procedures completed include right SI joint injection Patient is currently on Motrin OTC Patient denies any side effects of the medication(s), denies excessive drowsiness or sleepiness, denies suicidal ideation and reports that the current pain medication is helping to control the pain and improve activities of daily living. Patient denies any motor or sensory deficits. Patient denies any fever or night sweats, denies any change in the bowel movements or urination. Physical Examination: -Constitutional: Cooperative. Not in acute distress . -HEENT: Neck is supple. No lymphadenopathy. No thyromegaly. Normal thyroid size. Eyes: No ptosis , no icterus, no photophobia. ENT: No auditory deficits. Normal oropharynx. No Thrush. - Respiratory: Chest clear to auscultations bilaterally. No wheezing. No rhonchi. - Cardiovascular: Regular rate and rhythm. S1 / S2 , no S3 , no S4. - Gastrointestinal: Abdomen soft no tenderness. Bowel sounds positive in all four quadrants. No organomegaly. - Genitourinary: Deferred. - Neurologic: Cranial nerve II to XII intact. No focal neurological deficits. - Psychatric: Alert & oriented x 3. Matching mood & appropriate affect. Judgment and insight intact. - Lymphatic: No Lymphadenopathy. - Musculoskeletal: Cervical spine: Muscle bulk/ tone/ strength in the bilateral upper extremities normal. Facet loading test cervical area positive. Lumbar spine: Motor bulk/ tone/ strength lower extremities , thigh and legs : 5/5 Deep tendon reflexes : Normal Knee Jerk. Normal Ankle Jerk . Vertebral body tenderness to palpation over Lumbar Facet Loading Test positive Straight Leg Raise: positive at 30 degrees right side/ left side Gaenslen's Test positive Sacral spine : Severe tenderness over the Sacroiliac joint: right side / left side Range of motion: Flexion of the lumbar spine <60 degrees Range of motion: Extension of the lumbar spine <20 degrees Gaenslen's Test positive on the right Demetrio test: positive right side / left side Assessment and plan: Chronic low back pain secondary to lumbar degenerative disc disease , lumbar spondylosis with facet arthropathy without myelopathy Recommendation of repeat R SI joint injection as pain is exacerbated with activities of daily living. All patient questions answered MAPS reviewed and it was appropriate. I have spent 31 minutes on patient care today. Dr Moon was available by phone for the evaluation of this patient. The time was used to review the medical records including relevant urine studies and Prescription history (MAPs), review of the available imaging, evaluation and examination of the patient, coordination of care with the medical staff and if applicable referring physicians, as well as creation of the medical record Objective - Vital Signs Vital signs: Vital Signs Temp Pulse 63 06/11/21 14:12 Resp 18 06/11/21 14:12 BP 152/90 06/11/21 14:12 Pulse Ox Intake & Output 06/10/21 06/11/21 06/11/21 18:59 06:59 18:59 Weight 99.79 kg PQRS Measure Charge Sheet Mode of Arrival: Ambulatory - Pain Location Right Lower Back Non-Pharmacological Interventions: Inactivity, Relaxation Technique Pharmacological Interventions: Medication, PRN Medication PQRS Narrative: Blood Pressure 152/90 Pain Intensity [Right Lower 1 Back] Scale Used Numeric (1 - 10) Hx Alcohol Use (MH) Yes: Occasional Home Medications: Ambulatory Orders ALPRAZolam [Xanax] 0.5 mg PO TID PRN 08/15/20 Atorvastatin [Lipitor] 20 mg PO HS 08/15/20 Cyclobenzaprine [Flexeril] 10 mg PO TID PRN 08/15/20 Escitalopram [Lexapro] 20 mg PO DAILY 08/15/20 HYDROcodone/APAP 7.5-325MG [[place] 7.5-325] 1 tab PO Q6HR PRN 08/15/20 Losartan Potassium 100 mg PO DAILY 08/15/20 Aspirin [Adult Low Dose Aspirin EC] 81 mg PO BID #60 tablet. 08/20/20
== END ==
LOC: PNWHC3 13:41
PROVIDERS: ATTEND Physician Assistant Medical
DX: M51.36 Other intervertebral disc degeneration, lumbar region (principal); M47.816 Spondylosis without myelopathy or radiculopathy, lumbar region; G89.29 Other chronic pain; Z88.5 Allergy status to narcotic agent; Z88.6 Allergy status to analgesic agent
CPT/HCPCS: 99211

== ENCOUNTER → 2021-07-28 | Day surgery (SDC) | payer OTHER ==
[2021-07-24 14:56] VITALS: BMI 31.2
[~2021-07-28] MED LIST changes: +IOPAMIDOL M200 10 ML VIAL ONE; +IV FLUID CONTINUATION 1,000 ML IV ONE; +MIDAZOLAM 2 MG/2 ML VIAL ONE; -ROPIVACAINE 5MG/ML 20ML VIAL ONE; +TRIAMCINOLONE ACETONIDE 40 MG/ML 1 ML VIAL ONE; +fentaNYL (PF) 50 MCG/ML 2 ML AMP ONE
[2021-07-28 10:14] VITALS: RESP 16; TEMP 98.1
--- NOTE | 2021-07-28 10:29 | P.PCN ---
Date of Procedure: 07/28/21 Description of Procedure: PREOPERATIVE DIAGNOSIS: Sacroiliac joint dysfunction POSTOPERATIVE DIAGNOSIS: Sacroiliac joint dysfunction. PROCEDURES: 1. Right-sided Sacroiliac joint steroid injection #2 out of 2 2. Sacroiliac joint arthrogram. SURGEON: Cliff Rodriguez ANESTHESIA: Local and IV sedation : Versed, and fentanyl. EBL: None. Specimen removed: None Fluoroscopic image: saved to electronic medical records. PROCEDURE INDICATIONS: This patient with a history of chronic low back pain, and sacroiliac joint dysfunction. Patient tried conservative therapy. Patient had more than 80% pain relief with the previous SI joint injection for 3 weeks duration. Came here for intervention management. PROCEDURE DESCRIPTION: The patient was seen and identified in the preoperative area. Risks, benefits, complications, and alternatives were discussed with the patient. The patient agreed to proceed with the procedure and signed the consent. IV was started, and vital signs were stable. Patient was taken to the OR and time out was completed. The patient was placed in the prone position on procedure table and a pillow was placed under the abdomen to reduce lumbar lordosis. The lumbosacral area was prepped and draped in the usual sterile fashion. Critical pause was taken. Vital signs were closely monitored during the procedure. For the right side, the fluoroscopic camera was placed in left oblique view and right SI joint lower pole was identified. Skin entry point was infiltrated with 1% lidocaine and 22-gauge 3.5 inch spinal needle was introduced into the inferior one-third of SI joint and after penetrating into the joint arthrogram was done. 0.5 ml of [id number] contrast was injected after negative aspiration for blood, and air and negative for paresthesia. Good spread of the contrast into the SI joint has been seen. Then again after negative aspiration of spinal fluid and blood and negative for neurological symptoms, 3 mL of a solution containing total 2. mL of 1% preservative-free lidocaine mixed with 40 mg of Kenalog was injected. Needle was withdrawn intact. Skin was cleansed, and bandages were applied. COMPLICATIONS: None. DISPOSITION / PLANS: The patient was placed in a supine position and transferred to the recovery area in a stable condition for observation and was discharged from the recovery room after meeting discharge criteria. Home discharge instructions given to the patient by the staff. The patient was reexamined prior to discharge. The patient will schedule for follow-up visit with the pain clinic in 4 weeks duration.
[2021-07-28 10:44] VITALS: BP 116/65; PULSE 60
--- NOTE | 2021-07-28 10:44 | FL ---
EXAMINATION TYPE: FL guided pain mgmt statistic DATE OF EXAM: 07/28/2021 CLINICAL HISTORY: Sacroiliac joint pain. TECHNIQUE: Fluoroscopy. COMPARISON: None. FINDINGS: Fluoroscopic guidance was provided during pain relief procedure performed by Dr. Rodriguez . A total of 3 seconds of fluoroscopic time was utilized during the procedure and 1 spot image is acq uired. Single image acquired shows needle localization at the inferior sacroiliac joint. IMPRESSION: As Above.
== END | disposition home or self-care (01) ==
LOC: ORPAIN 09:48
DX: M53.3 Sacrococcygeal disorders, not elsewhere classified (principal); I10 Essential (primary) hypertension; M19.90 Unspecified osteoarthritis, unspecified site; Z88.5 Allergy status to narcotic agent; Z88.8 Allergy status to other drugs, medicaments and biological substances
CPT/HCPCS: J2250; J3301; J3010; Q9966; G0260; 27096; 99152

== ENCOUNTER → 2021-08-24 | Outpatient (CLI) | payer OTHER ==
--- NOTE | 2021-08-24 14:53 | P.PN ---
Subjective Progress Note Date: 08/24/21 This is a 56-year-old gentleman with history of lower back pain status post sacroiliac joint steroid injection was given 75% of pain relief. The patient is here today mostly for his neck pain which has been getting worse with a stiff neck. The pain radiates down his left arm to the left elbow with numbness and tingling in his left hand. He had an MRI on the cervical spine which showed some central disc bulging at C3-C4 and left paracentral disc bulging with mild anterior thecal sac compression at C4 5 with disc bulging at the C56 level with moderate anterior thecal sac compression and possible cord contact it also showed mild bilateral foraminal narrowing from uncovertebral joint to C5-C6 level . Patient denies new-onset weakness, bowel/bladder incontinence, or any other signs or symptoms of cauda equina syndrome. There are no signs of acute intoxication, and no indications of medication diversion or overuse. In addition to above, 13-point review of systems is also negative for chest pain, shortness of breath, changes in vision, changes in hearing, new onset weakness, abdominal pain, diarrhea, extreme fatigue, malaise, fever, skin changes, homicidal or suicidal ideation, or bowel or bladder incontinence. Vital Signs: Reviewed in EMR Gen: AAOx3, NAD HEENT: PERRLA,hearing grossly normal Pulm: resp unlabored Neck: supple, trachea midline Neuro exam of the upper extremities: Within normal limits Straight leg raising test: Wil's test: Range of motion of the lumbar spine: Facet loading test: Tenderness in the paravertebral musculature: Positive in the cervical paravertebral musculature on the left side Neuro: CN II-XII grossly intact, Imaging: Reviewed in EMR/chart Assessment: Left cervical radiculopathy Cervical spondylosis without myelopathy Plan: 1. Explanation: When patients on opioids, opioid and psychological risk scores were reviewed. Diagnoses, prognoses, and multiple treatment options including but not limited to physical therapy, interventional therapies, adjuvant medical therapies, narcotic medication therapies, and surgery were discussed with the patient and all questions were answered to the patient's satisfaction. 2. Opioid agreement:When patients are prescribed opoids through our clinic, opioid agreement is signed with the patient and the patient is warned not to use opioids while driving or before driving and not to combine opioids with benzodiazepines or alcohol. 3. Counseling: When patient is smoking or obese, the patient was counseled extensively on SMOKING CESSATION, BODY MASS INDEX, EXERCISE. Specifically, the patient was instructed regarding the importance of smoking cessation, obesity, and exercise in the context of both chronic pain and overall health. 4. Procedures: Visual for cervical epidural steroid injection under fluoroscopic guidance at the C7-T1 level in the left paramedian approach. I asked the patient to hold his aspirin for 5 days before the procedure. 5. Consultations: None 6. Investigations: None 7. Medications: Prescribed today 8. Disposition: Proceed with the above-mentioned procedure as soon as possible 9. Maps were reviewed and were appropriate.
[2021-08-24 15:05] VITALS: BP 146/93; PULSE 61; RESP 18; TEMP 98.2
== END ==
LOC: PNWHC3 13:34
PROVIDERS: ATTEND Anesthesiology
DX: M47.22 Other spondylosis with radiculopathy, cervical region (principal); Z88.6 Allergy status to analgesic agent; Z88.5 Allergy status to narcotic agent
CPT/HCPCS: 99211

== ENCOUNTER 2021-12-17 07:28 | Day surgery (SDC) | payer OTHER ==
[2021-12-16 10:28] VITALS: BMI 32.3
[~2021-12-17 07:28] MED LIST changes: -IOPAMIDOL M200 10 ML VIAL ONE; -IV FLUID CONTINUATION 1,000 ML IV ONE; -MIDAZOLAM 2 MG/2 ML VIAL ONE; -TRIAMCINOLONE ACETONIDE 40 MG/ML 1 ML VIAL ONE; -fentaNYL (PF) 50 MCG/ML 2 ML AMP ONE
[2021-12-17 08:47] VITALS: RESP 16; TEMP 96.9
[2021-12-17] MEDS ORDERED: fentaNYL (PF) 50 MCG/ML 2 ML AMP ONE (09:21)
[2021-12-17] MEDS ORDERED: DEXAMETHASONE SOD PHOSPHATE 10 MG/ML 1 ML VIAL ONE (09:21)
[2021-12-17] MEDS ORDERED: MIDAZOLAM 2 MG/2 ML VIAL ONE (09:21)
[2021-12-17] MEDS ORDERED: IOPAMIDOL M200 10 ML VIAL ONE (09:21)
--- NOTE | 2021-12-17 09:31 | P.PCN ---
Date of Procedure: 12/17/21 Procedure(s) Performed: . PROCEDURE 1. Cervical epidural steroid injection under fluoroscopic guidance, C7-T1 (fluoroscopy images available in the radiology department ) 2. Cervical epidurogram. PREOPERATIVE DIAGNOSIS: 1- Cervical Degenerative Disc Diseases 2- Cervical radiculopathy., 3-cervical spondylosis with cervical Facet arthropathy without myelopathy.4-cervical spinal stenosis POSTOPERATIVE DIAGNOSIS: : 1- Cervical Degenerative Disc Diseases , 2- Cervical radiculopathy. 3-,cervical spondylosis with cervical Facet arthropathy without myelopathy. 4-cervical spinal stenosis ANESTHESIA: moderate sedation, with Versed 2 mg and Fentanyl 100 mcg. Sedation start time : 0 922 Sedation end time : 0 929 EBL 0 PROCEDURE INDICATION: The patient with neck pain and radiculitis unresponsive to conservative treatment consents for procedure. PROCEDURE DESCRIPTION / TECHNIQUE: The patient was seen and identified in the preoperative area. Risks, benefits, complications, including but not limited to infections ,bleeding , allergic reactions to the medications ,and not complete pain releife, and alternatives were discussed with the patient, the patient agreed to proceed with the procedure and signed the consent. Patient was taken to the OR and time out was completed. The patient was placed in the prone position on the procedure table. A pillow was placed under the patients chest to increase the cervical interlaminar space. The cervical area was prepped and draped in the usual sterile fashion. Vital signs were closely monitored during the procedure. Conscious sedation was used during the procedure to decrease patients anxiety. Using anterior-posterior fluoroscopy, the C7-T1 interlaminar space was identified and the skin over this site was marked and then infiltrated with 1% lidocaine subcutaneously. Subsequently, a 20-gauge 3-1/2-inch Tuohy epidural needle was inserted and advanced toward the epidural space by means of the ``hanging-drop technique and guided by AP and lateral fluoroscopy. The correct needle position in the epidural space was verified with the injection of 2 mL of the water soluble contrast dye [id number] and observing an excellent epidurogram with the epidural spread of the dye, after negative aspiration for blood and CSF and in the absence of paresthesias. then, mixture containing 20 mg Dexamethasone and 2 ml of preservative-free normal saline injected and a washout of epidurogram was seen. Needle was withdrawn intact, skin was cleansed, and bandages were applied. Complications= none. Disposition= patient was placed in supine position and transferred to the recovery room area in stable condition and there was no evidence of upper or lower extremity motor or sensory deficit after the procedure patient was discharged from recovery room after discharge criteria met and home discharge instructions was given by the staff and patient will follow with the pain clinic in 2-4 weeks
[2021-12-17] MEDS ORDERED: IV FLUID CONTINUATION 1,000 ML IV ONE (09:34)
[2021-12-17 09:49] VITALS: BP 142/69; PULSE 53
--- NOTE | 2021-12-17 09:57 | FL ---
EXAMINATION TYPE: FL guided pain mgmt statistic DATE OF EXAM: 12/17/2021 CLINICAL HISTORY: Neck pain. TECHNIQUE: Fluoroscopy. COMPARISON: None. FINDINGS: Fluoroscopic guidance was provided during pain relief procedure performed by Dr. Moon . A total of 3 seconds of fluoroscopic time was utilized during the procedure and 1 spot images are acquired. A single image acquired shows needle localization at C7 level. IMPRESSION: As Above.
== END 2021-12-17 10:04 | disposition home or self-care (01) ==
LOC: ORPAIN 07:28
PROVIDERS: ATTEND Specialist
DX: M50.13 Cervical disc disorder with radiculopathy, cervicothoracic region (principal); M47.23 Other spondylosis with radiculopathy, cervicothoracic region; M48.02 Spinal stenosis, cervical region; F41.9 Anxiety disorder, unspecified; Z88.5 Allergy status to narcotic agent; Z88.6 Allergy status to analgesic agent
CPT/HCPCS: 62321; J2250; J1100; J3010; Q9966

== ENCOUNTER → 2022-01-04 | Outpatient (CLI) | payer OTHER ==
[2022-01-04 14:20] VITALS: BP 147/78; PULSE 75; RESP 18; TEMP 98.9
--- NOTE | 2022-01-04 15:43 | P.PAINPG ---
PQRS Measure Charge Sheet Comment: A 56 yr old male w at side with a history of severe and chronic neck and low back pain secondary to cervical & lumbar degenerative disc diseases and lumbar spondylosis with facet arthropathy without myelopathy and BL Sacroiliitis presents today for ROSALINO C7-T1. Pt states he experienced 0% pain relief s/p procedure. Pain level is currently at 7/10 in intensity, constant, localized in lower lumbar spine, achy and throbbing in character w shooting towards BLEs. Pain is provoked by bending. Pain is alleviated with PT x 8 wks which ended Mar 2021, massage integrated w PT, heat, ice, meds (Roper), topicals, laying supine, repositioning and rest. Interventional pain procedures completed include ROSALINO C7-T1 x1. Patient is currently on Roper, topicals Patient denies any side effects of the medication(s), denies excessive drowsiness or sleepiness, denies suicidal ideation and reports that the current pain medication is helping to control the pain and improve activities of daily living. Patient denies any motor or sensory deficits. Patient denies any fever or night sweats, denies any change in the bowel movements or urination. Physical Examination: -Constitutional: Cooperative. Not in acute distress . - Neurologic: Cranial nerve II to XII intact. No focal neurological deficits. - Psychatric: Alert & oriented x 3. Matching mood & appropriate affect. Judgment and insight intact. - Musculoskeletal: Cervical spine: Muscle bulk/ tone/ strength in the bilateral upper extremities normal Vertebral body tenderness to palpation over Spurling test positive Distraction test positive Facet loading test positive Thoracic spine Muscle bulk / tone/ strength in the bilateral paraspinal muscles normal Vertebral body tender to palpation over Facet loading test positive Lumbar spine: Motor bulk/ tone/ strength lower extremities , thigh and legs : 5/5 Deep tendon reflexes : Normal Knee Jerk. Normal Ankle Jerk . Vertebral body tenderness to palpation over Lumbar Facet Loading Test positive Straight Leg Raise: positive at 30 degrees right side/ left side Gaenslen's Test positive Sacral spine : Severe tenderness over the Sacroiliac joint: right side / left side Range of motion: Flexion of the lumbar spine <60 degrees Range of motion: Extension of the lumbar spine <20 degrees Gaenslen's Test positive on the R Demetrio test: positive right side R Thigh Thrust Test Sacral Thrust Test +R Assessment and plan: Chronic neck and low back pain secondary to cervical and lumbar degenerative disc disease , spondylosis with facet arthropathy without myelopathy Recommendation of R SI joint injection. May need a series, up to 4 within a 12 mo period, for optimal pain relief. Risks, benefits of procedure discussed and pt verbalized understanding. Admits to anticoagulant use or medical history of diabetes. Protocol for discontinuation/ continuation of medications emanuel procedure discussed. All patient questions answered I have spent less than 30 minutes on patient care today. Dr Moon was available by phone for the evaluation of this patient. The time was used to review the medical records including relevant urine studies and Prescription history (MAPs), review of the available imaging, evaluation and examination of the patient, coordination of care with the medical staff and if applicable referring physicians, as well as creation of the medical record - Pain Location Bilateral Lower Back Non-Pharmacological Interventions: Heat, Ice, Inactivity, Massage, Physical Therapy Pharmacological Interventions: Epidural, Scheduled Medication, Topical Medicati on PQRS Narrative: Hx Alcohol Use (MH) Yes: Occasional Home Medications: Ambulatory Orders ALPRAZolam [Xanax] 0.5 mg PO TID PRN 08/15/20 Atorvastatin [Lipitor] 20 mg PO HS 08/15/20 Cyclobenzaprine [Flexeril] 10 mg PO TID PRN 08/15/20 Escitalopram [Lexapro] 20 mg PO DAILY 08/15/20 HYDROcodone/APAP 7.5-325MG [Roper 7.5-325] 1 tab PO Q6HR PRN 08/15/20 Losartan Potassium 100 mg PO DAILY 08/15/20 buPROPion SR [Wellbutrin SR] 150 mg PO QAM 12/16/21 Controlled Substance Measures - Controlled Substance Measures Is patient prescribed a controlled substance at discharge?: No
== END ==
LOC: PNWHC3 13:27
PROVIDERS: ATTEND Specialist
DX: M47.812 Spondylosis without myelopathy or radiculopathy, cervical region (principal); M47.816 Spondylosis without myelopathy or radiculopathy, lumbar region; Z91.048 Other nonmedicinal substance allergy status; G89.29 Other chronic pain; M50.30 Other cervical disc degeneration, unspecified cervical region; M51.36 Other intervertebral disc degeneration, lumbar region; F10.90 Alcohol use, unspecified, uncomplicated; Z88.6 Allergy status to analgesic agent; Z88.5 Allergy status to narcotic agent
CPT/HCPCS: 99211

== ENCOUNTER → 2022-01-04 | Outpatient (CLI) | payer OTHER ==
--- NOTE | 2022-01-04 15:01 | XR ---
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 . FINDINGS: Left shoulder arthroplasty changes with hardware intact. There is mild degeneration changes of the na tive glenoid likely postsurgical. No evidence of fracture. No evidence for joint effusion. IMPRESSION: Left shoulder arthroplasty without evidence of fracture. Hardware intact. Stable alignment.
== END | disposition home or self-care (01) ==
LOC: RADXRMAIN 14:39
PROVIDERS: ATTEND Physician Assistant Medical
DX: M19.012 Primary osteoarthritis, left shoulder (principal)

== ENCOUNTER 2022-03-11 10:59 | Day surgery (SDC) | payer OTHER ==
[2022-02-02 13:04] VITALS: BMI 30.4
[2022-03-11 11:32] VITALS: RESP 16; TEMP 97.5
[2022-03-11] MEDS ORDERED: fentaNYL (PF) 50 MCG/ML 2 ML AMP ONE (12:11)
[2022-03-11] MEDS ORDERED: ROPIVACAINE 5 MG/ML 20 ML AMPULE ONE (12:11)
[2022-03-11] MEDS ORDERED: methylPREDNISolone ACETATE 40 MG/ML 1 ML VIAL ONE (12:11)
[2022-03-11] MEDS ORDERED: MIDAZOLAM 2 MG/2 ML VIAL ONE (12:11)
--- NOTE | 2022-03-11 12:26 | P.PCN ---
Date of Procedure: 03/11/22 Procedure(s) Performed: Procedure= Right sacroiliac joints steroid injection under fluoroscopy guidance (fluoroscopy image stored on file in the radiology Department ) Preoperative diagnosis= 1-Right sacroiliitis 2-lumbar facet arthropathy Postoperative diagnosis=Same as preop Diagnosis . Complication = none Condition= stable Anesthesia= moderate sedation with intravenous Versed 2 mg , and fentanyl 100 micrograms . sedation start 12:13 . end 12:20 Indication for the procedure= patient complaining of low back pain , examination was positive for severe tenderness over the sacroiliac joints bilaterally and patient diagnosed with sacroiliitis, for this reason he was good candidate for sacroiliac joint steroid injection. Description of the procedure= procedure risk and benefits discussed with the patient, including but not limited, risk of infection and bleeding, and ALLERGIC reaction to the medication and not complete pain relief and patient agreed with the preceding patient taken to the operating room, placed in prone position or standard monitors applied to the patient then after induction of anesthesia back prepped with chlorhexidine 3 times , Then under strict sterile technique, first I did the right sacroiliac joint the which was identified under fluoroscopy guidance been local infiltration of the skin and subcu interstitial with lidocaine 1% then 22-gauge Quincke Needle advanced slowly under fluoroscopy and placed in the right sacroiliac joint needle placement confirmed with AP and oblique and lateral view and after appropriate needle placement confirmed and after negative aspiration, or heme , then Ropivacaine 0.5% 5 mL, and 40 mg of Depo-Medrol mixed together and injected in the right sacroiliac joint after negative aspiration patient tolerated the procedure well without any complication.
[2022-03-11] MEDS ORDERED: IV FLUID CONTINUATION 1,000 ML IV ONE (12:28)
[2022-03-11 12:44] VITALS: BP 111/64; PULSE 54
--- NOTE | 2022-03-11 15:57 | FL ---
EXAMINATION TYPE: FL guided pain mgmt statistic DATE OF EXAM: 03/11/2022 FLUOROSCOPY Fluoroscopy time of 2 seconds was used during right SI joint injection. 1 image/s document/s the pro cedure.
== END 2022-03-11 12:57 | disposition home or self-care (01) ==
LOC: ORPAIN 10:59
PROVIDERS: ATTEND Specialist
DX: M46.1 Sacroiliitis, not elsewhere classified (principal); M47.818 Spondylosis without myelopathy or radiculopathy, sacral and sacrococcygeal region; Z88.5 Allergy status to narcotic agent
CPT/HCPCS: J2250; J1030; J3010; J2795; G0260; 27096